=== PATIENT | male | born 1985 | race Caucasian/White ===

== ENCOUNTER 2020-01-28 06:23 | Day surgery (SDC) | payer BC ==
[~2020-01-28] VITALS: Ht 180.3 cm; Wt 87.6 kg
[~2020-01-28 06:23] MED LIST: ALLO100; ATOR20 PO; AZELASTINE137 MCG/03; COLCHICINE0.6 MG PO; FLUT.05NI; Prinivil10 MG PO; ZYRTEC10 M2 PO
== END 2020-01-28 09:18 | disposition home or self-care (01) ==
LOC: ORSCSDS 06:23
PROVIDERS: Otolaryngology
PROC: 09BL8ZZ Excision of Nasal Turbinate, Via Natural or Artificial Opening Endoscopic (ICD-10-PCS; principal; 2020-01-28 07:30)
DX: J34.3 Hypertrophy of nasal turbinates (principal); I10 Essential (primary) hypertension; E78.5 Hyperlipidemia, unspecified; F17.210 Nicotine dependence, cigarettes, uncomplicated; Z79.899 Other long term (current) drug therapy
CPT/HCPCS: J0171; J1100; J2250; J2405; J2704; J3010; J7120